=== PATIENT | female | born 1970 | race Caucasian/White ===

== ENCOUNTER 2025-09-15 11:21 | Emergency (ER) | payer OTHER, SELFPAY ==
[2025-09-15 11:25] VITALS: BP 123/78
[2025-09-15 12:21] LABS: Hematocrit 47.5 % (37.0-47.0); Hemoglobin 16.6 g/dL (12.0-16.0); Mean Corp Hgb Conc. 34.9 g/dL (33.0-37.0); Mean Corpuscular Volume 90.3 fL (81.0-99.0); Nucleated Red Blood Cells % 0 %; Platelet Count 313 10^3/uL (130-400); Red Cell Dist. Width 11.9 % (11.5-14.5)
[2025-09-15 12:32] LABS: ALT (SGPT) 22 U/L (0-35); AST (SGOT) 24 U/L (14-36); Albumin 4.9 g/dl (3.5-5.0); Alkaline Phosphatase 63 U/L (38-126); Blood Urea Nitrogen 16 mg/dl (7-17); Calcium 9.6 mg/dl (8.4-10.2); Carbon Dioxide 25 mmol/L (22-30); Chloride 107 mmol/L (98-107); Estimated Creatinine Clearance 80 ml/min; Glucose 116 mg/dl (70-99); Potassium 4.2 mmol/L (3.5-5.1); Sodium 139 mmol/L (135-145); Total Protein 8.2 g/dl (6.3-8.2); eGFR > 60.00
--- NOTE | 2025-09-15 13:03 | ED.GENMED ---
History of Present Illness
General
Chief Complaint: Abdominal Pain
Time Seen by Provider: 09/15/25 12:59
History of Present Illness
History of Present Illness:
see MDm
Phy Exam
Physical Exam
Physical Exam:
SEE mdm
Course
Orders/Labs/Results
Orders:
Orders
09/15/25 12:11
CMP [Comprehensive Metabolic Panel] Urgent
Complete Blood Count/With Diff Urgent
Lipase Urgent
Comment: ADD ON
09/15/25 13:01
Add On- LAB Urgent
Tests Added?: lipase
09/15/25 13:18
CT Abd/Pel (IV only)-DH only Urgent
Comment:
Reason For Exam: upper abd pain, vomiting, constipation; wegovy
Dicyclomine HCl [Bentyl] 20 mg IM NOW STA
Diphenhydramine [Benadryl] 25 mg IV NOW STA
Metoclopramide [Reglan] 10 mg IV NOW STA
09/15/25 15:49
Pantoprazole [Protonix IV] 40 mg IV NOW STA
Abnormal Lab Results
09/15/25
12:11
WBC 17.9 H 10^3/uL
(4.8-10.8)
Hgb 16.6 H g/dL
(12.0-16.0)
Hct 47.5 H %
(37.0-47.0)
MCH 31.6 H pg
(27.0-31.0)
Abs Immat Gran (auto) 0.1 H 10^3/uL
(0-0.05)
Absolute Neuts (auto) 16.1 H 10^3/uL
(1.4-6.5)
Absolute Lymphs (auto) 0.6 L 10^3/uL
(1.2-3.4)
Absolute Monos (auto) 1.0 H 10^3/uL
(0.1-0.6)
Neutrophils % 90.2 H %
(42.2-75.2)
Lymphocytes % 3.1 L %
(20.5-51.1)
Glucose 116 H mg/dl
(70-99)
09/15/25 12:11
09/15/25 12:11
Vital Signs
Initial and Last Documented VS:
Initial Vital Signs
Temp Pulse Resp BP Pulse Ox
36.8 C 94 18 123/78 97
09/15/25 11:09/15/25 11:09/15/25 11:09/15/25 11:09/15/25 11:25
Last Documented Vital Signs
Temp Pulse Resp BP Pulse Ox
36.8 C 75 18 108/56 97
09/15/25 11:09/15/25 16:00 09/15/25 16:00 09/15/25 16:00 09/15/25 16:00
MDM/Problems Addressed
Differential Diagnosis Includes:
see MDM
MDM/Problems Addressed:
Note:
CHIEF COMPLAINT(S)
Abdominal pain with vomiting.
HISTORY OF PRESENT ILLNESS
The patient is a 54-year-old female who presents with abdominal pain and vomiting. She reports that the symptoms this morning around 2 am. The abdominal pain is described as occurring in waves and is associated with a sensation of bloating to her
upper abdomen. The patient has a known history of constipation and Irritable Bowel Syndrome (IBS) but mentions that this feels different due to the significant nausea and vomiting. She notes that she vomited approximately seven times since the onset
this morning. The patient is currently taking medications that might contribute to gastrointestinal side effects, such as higher doses of her diabetes medication (1.75 units).
pt has not had any fever, chills, bloody vomit, radiation of pain to back, chest pain, shortness of breath
she did move her bowels minimally today, which was harder and smaller
she thinks she could be constipated, related to the wegovy
but the vomiting is concerning to her
no previous abdominal surgeries
PAST MEDICAL HISTORY
- Constipation
- Irritable Bowel Syndrome (IBS)
- Diabetes
MEDICATIONS
The patient mentions taking higher doses of diabetes medication (1.75 units).
PHYSICAL EXAM
- Nursing notes and vital signs reviewed.
GENERAL: Alert , uncomfortable
EYE: pupils equal and reactive
NECK: Supple
ENT: o/p clr, mmm.
CARDIAC: Regular rate and rhythm .
LUNGS: Clear breath sounds bilaterally, no acute respiratory distress, no wheezes/rales/rhonchi
ABDOMEN: Soft, mild epigastric tenderness, mild bloating, no r/g, no cvat, normal bowel sounds
NEUROLOGICAL: Alert and oriented, no focal neuro deficits
SKIN: Warm and dry, skin intact.
MUSCULOSKELETAL: No edema, well perfused. neg rohith's sign
PSYCH: Normal and appropriate interaction.
PROBLEM LIST
Acute Problems:
- Abdominal pain with vomiting
- Possible viral gastrointestinal infection
Chronic Problems:
- Diabetes
- Constipation
- Irritable Bowel Syndrome
PLAN
- Administer nausea medication, specifically Reglan (metoclopramide) combined with Benadryl (diphenhydramine).
- Toradol (ketorolac) discussed for pain management if needed; decision against using due to patients condition and history.
- Order and review CT imaging of the abdomen to assess for obstruction, ileus, gallstones, or other abdominal pathology.
- Consider additional pain management options if abdominal CT findings are unremarkable.
DIFFERENTIAL DIAGNOSIS
The Differential Diagnosis includes, in no particular order and is not limited to:
1. Gastroparesis
2. Ileus
3. Viral gastroenteritis
4. Gastritis
5. Pancreatitis
6. Gallstones
7. Bowel obstruction
8. Appendicitis
9. Peptic ulcer disease
10. Diverticulitis
54 Y/O f
VOMITING, EPIGASTRIC PAIN, BLOATING SINCE 2 AM
elev wbc could be reactive from vomiting
ct ordered d/t pain
CARE-UPDATE
09/15/25 - 15:49
The patient reports improvement and no longer experiences vomiting. Laboratory results indicate normal pancreatic enzymes, ruling out pancreatitis. Imaging shows thickening of the stomach and duodenum, suggesting gastritis or duodenitis. The patient
will be started on a one-week course of medication for acid reflux. Catherine mino was provided to test tolerance to liquids, with plans to administer a dose of Protonix IV. Incidental findings include small cysts in the liver and fibroids on the
uterus, none of which appear concerning. 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 If the patients condition worsens with liquid intake, hospital admission for gastritis may be considered.
*Pulse Oximetry
SaO2: 97
Oxygen Mode of Delivery: Room air
Patient hypoxic: no (97)
*Critical Care Note
Total Time (30-74mins, 75-104mins- exclusive of procedures): Not Applicable
ED Attending Note
-
Portions of this chart may have been created with voice recognition software.� Occasional wrong word or��sound alike� substitutions may have occurred due to the inherent limitations of voice recognition software.
Discharge Plan
Departure
Patient Disposition: Home (Routine Discharge)
Date of Disposition: 09/15/25
Time of Disposition: 16:31
Patient with high blood pressure during this ER visit?: No
Discharge Problem:
Gastritis and duodenitis
Instructions: Gastritis (DC)
Prescriptions:
New
ondansetron 4 mg tablet,disintegrating
4 mg PO Q8H PRN (Reason: nausea and vomiting) 2 Days Qty: 7 0RF
pantoprazole [Protonix] 40 mg tablet,delayed release (DR/EC)
40 mg PO DAILY Qty: 14 0RF
Referrals:
Mitul Pérez MD [Family Provider, Internal Medicine] - Follow up in 2-3 days
Activity Restrictions/Additional Instructions:
YOUR BLOOD WORK WAS REASSURING
YOU DO HAVE SOME INFLAMMATION OF YOUR STOMACH LINING AND DUODENUM LINING
TAKE PROTONIX 40 MG ONCE A DAY ON EMPTY STOMACH FOR 7-14 DAYS
FOR NAUSEA/VOMITING YOU CAN USE ZOFRAN 4 MG EVERY 8 HOURS NEEDED
BLAND DIET, CLEAR LIQUIDS TODAY AND ADVANCE
THIS COULD BE FROM THE WEGOVY OR VIRAL
RETURN FOR: SEVERE PAIN, FEVER, VOMITING REPEATEDLY, BLACK STOOL, VOMITING BLOOD ETC
OTHERWISE YOU CAN ALSO FOLLOW UP WITH GI.
Interventions
Interventions:
*Risk Screen - Suicide Last Done: 09/15/25 11:25
*General Assessment Last Done: 09/15/25 12:01
*Neglect/Abuse Screening Last Done: 09/15/25 12:01
*ED- Fall Risk Assessment Last Done: 09/15/25 12:01
*ED COVID-19 Vaccine History Last Done: 09/15/25 12:01
*ED Influenza Vaccine History Last Done: 09/15/25 12:02
Discharge Date and Time
Print Language: GEORGIAN
[2025-09-15 13:32] LABS: Lipase 220 U/L (23-300)
[2025-09-15] MEDS: BENTYL 20 MG IM (13:47)
[2025-09-15] MEDS: REGLAN 10 MG IV (13:47)
[2025-09-15] MEDS: BENADRYL 25 MG IV (13:48)
[2025-09-15 14:00] VITALS: BP 117/82
[2025-09-15] MEDS: PROTONIX IV 40 MG IV (15:53)
[2025-09-15 16:00] VITALS: BP 108/56
== END 2025-09-15 17:19 | disposition home or self-care (01) ==
LOC: EMR 11:21
PROVIDERS: EMERGENCY PHYSICIAN Emergency Medicine; FAMILY PHYSICIAN Internal Medicine
DX: K29.00 Acute gastritis without bleeding (principal); K29.80 Duodenitis without bleeding; K58.9 Irritable bowel syndrome, unspecified; E11.9 Type 2 diabetes mellitus without complications; Z88.2 Allergy status to sulfonamides; Z88.8 Allergy status to other drugs, medicaments and biological substances
CPT/HCPCS: 99284; 96375 ×2; 96372; 96374; 74177; 80053; 83690; 85025; Q9967